=== PATIENT | female | born 1985 | race Hispanic/Latino ===

== ENCOUNTER 2023-01-18 11:23 | Inpatient (IN) | payer SELFPAY, OTHER ==
[~2023-01-18 11:23] MED LIST: Iopamidol-370 76% 500 ML 1 ML ONE
[2023-01-18] MEDS ORDERED: Fentanyl 100 MCG/2 ML VIAL ONE ×2 (11:32→12:39)
[2023-01-18] MEDS ORDERED: Boostrix 0.5 ML (Tdap) VIAL (>/=7 yrs of age) ONE (11:32)
[2023-01-18] MEDS ORDERED: CEFAZOLIN 2 GM VIAL ONE (11:32)
[2023-01-18 12:22] LABS: #Eosinphils 0.1 thou/uL (0.0-0.7); #Lymphocytes 2.1 thou/uL (1.20-3.40); #Monocytes 0.4 thou/uL (0.11-0.59); #Neutrophils 6.7 thou/uL (1.40-6.50); %Basophils 0.4 % (0.0-1.0); %Eosinophils 0.8 % (0.0-10.0); %Lymphocytes 22.7 % (21.0-51.0); %Monocytes 4.1 % (0.0-10.0); %Neutrophils 71.9 % (42.0-75.0); Hemoglobin 13.9 g/dL (12.0-16.0); Mean Corpuscular HGB CONC 34.4 g/dL (32.0-36.0); Mean Corpuscular Hemoglobin 29.7 pg (27.0-31.0); Mean Corpuscular Volume 86.4 fl (78.0-98.0); Mean Platelet Volume 8.4 fL (7.4-10.4); Platelet Count 233 10x3/uL (130-400); RBC Distribution Width 11.7 % (11.5-14.5); Red Blood Cell (RBC) Count 4.68 mill/uL (4.20-5.40); White Blood Cell (WBC) Count 9.3 10x3/uL (4.8-10.8)
[2023-01-18] MEDS ORDERED: Lidocaine 1% w/Epinephrine 1:100K 20 ML VIAL ONE ×2 (12:30→16:54)
[2023-01-18 12:36] LABS: BHCG - Serum Negative (NEGATIVE); Pregs Control Background? CLEAR/WHITE (CLR/WHITE); Pregs Control Bar Appear? YES (CONTROL BAR)
[2023-01-18 12:38] LABS: Prothrombin Time 13.9 sec (12.0-14.7)
[2023-01-18 12:39] LABS: PTT 32.4 sec (22.9-36.1)
[2023-01-18 12:44] LABS: ALT (SGPT) 24 U/L (8-55); AST (SGOT) 39 U/L (5-34); Albumin 3.9 g/dL (3.5-5.0); Alkaline Phosphatase 70 U/L (40-110); Anion Gap 11 mmol/L (10-20); BUN (Urea Nitrogen) 7 mg/dL (7.0-18.7); Bilirubin, Total 0.6 mg/dL (0.2-1.2); Calc. Creatinine Clearance 0 mL/min (70-130); Calcium 8.8 mg/dL (7.8-10.44); Carbon Dioxide 25 mmol/L (22-29); Chloride 103 mmol/L (98-107); Estimated GFR 115; Globulin 3.2 g/dL (2.4-3.5); Glucose 93 mg/dL (70-105); Potassium 3.1 mmol/L (3.5-5.1); Protein, Total 7.1 g/dL (6.0-8.3); Sodium 136 mmol/L (136-145)
[2023-01-18] MEDS ORDERED: Dextrose 5% in Water 1,000 ML IV PRN (13:07)
[2023-01-18] MEDS ORDERED: Ondansetron PF 4 MG/2 ML Vial IVP PRN (13:07)
[2023-01-18] MEDS ORDERED: hydrALAZINE 20 MG/ML VIAL SLOW IVP PRN (13:07)
[2023-01-18] MEDS ORDERED: Dextrose 50% Abboject 50 ML SYRINGE SLOW IVP PRN (13:07)
[2023-01-18] MEDS ORDERED: Acetaminophen/Codeine 30-300mg Tablet PO PRN (13:10)
[2023-01-18] MEDS ORDERED: Sodium Chloride 0.9% 1,000 ML IV SCH (13:15)
[2023-01-18 13:37] LABS: Magnesium 1.6 mg/dL (1.6-2.6); Phosphorus 2.5 mg/dL (2.3-4.7)
[2023-01-18] MEDS ORDERED: Ondansetron PF 4 MG/2 ML Vial ONE (14:29)
[2023-01-18] MEDS ORDERED: Morphine 4 MG/ML VIAL ONE (14:29)
[2023-01-18] MEDS ORDERED: Potassium Chloride 20 MEQ TAB ONE (14:29)
[2023-01-18] MEDS ORDERED: Acetaminophen 325 MG TAB ONE (14:48)
[2023-01-18] MEDS ORDERED: Acetaminophen/Codeine 30-300mg Tablet ONE (14:48)
[2023-01-18] MEDS ORDERED: CEFAZOLIN 2 GM in Sodium Chloride 0.9% 100 ML IVPB SCH (15:00)
[2023-01-18] MEDS: Acetaminophen/Codeine 30-300mg Tablet PO SCH ×2 (15:00→21:45)
[2023-01-18] MEDS ORDERED: Potassium Phosphate 30 MMOL in Sodium Chloride 0.9% 250 ML 250 ML IVPB SCH (15:45)
[2023-01-18] MEDS ORDERED: Magnesium 2 GM/50 ML(in water) 2 GM in Premix Bag 1 BAG IVPB SCH (15:45)
[2023-01-18] MEDS ORDERED: Magnesium 2 GM/50 ML BAG (IN WATER) ONE (16:52)
[2023-01-18] MEDS: Acetaminophen 325 MG TAB PO SCH (17:01)
[2023-01-18 18:30] LABS: SARS-CoV-2 NAA Rapid Test Not Detected (NotDetected)
[2023-01-18 20:03] VITALS: BMI 26.6
[2023-01-18] MEDS: Morphine 4 MG/ML VIAL SLOW IVP PRN (21:43)
[2023-01-18] MEDS: Famotidine/PF 20 mg/2ml Vial SLOW IVP SCH (21:44)
[2023-01-18] MEDS: Senokot S 8.6-50 MG TAB PO SCH (21:44)
[2023-01-18] MEDS: Gabapentin 300 MG CAP PO SCH (21:44)
[2023-01-19] MEDS: Acetaminophen 325 MG TAB PO SCH ×5 (00:21→23:22)
[2023-01-19] MEDS: Morphine 4 MG/ML VIAL SLOW IVP PRN ×4 (00:23→23:37)
[2023-01-19] MEDS: Acetaminophen/Codeine 30-300mg Tablet PO SCH ×4 (03:25→20:12)
[2023-01-19 06:27] LABS: #Lymphocytes 1.2 thou/uL (1.20-3.40); #Monocytes 0.7 thou/uL (0.11-0.59); #Neutrophils 4.7 thou/uL (1.40-6.50); %Basophils 0.2 % (0.0-1.0); %Eosinophils 0.6 % (0.0-10.0); %Lymphocytes 17.9 % (21.0-51.0); %Monocytes 10.9 % (0.0-10.0); %Neutrophils 70.4 % (42.0-75.0); Hemoglobin 12.7 g/dL (12.0-16.0); Mean Corpuscular HGB CONC 34.2 g/dL (32.0-36.0); Mean Corpuscular Volume 87.7 fl (78.0-98.0); Mean Platelet Volume 8.2 fL (7.4-10.4); Platelet Count 213 10x3/uL (130-400); RBC Distribution Width 11.8 % (11.5-14.5); Red Blood Cell (RBC) Count 4.24 mill/uL (4.20-5.40); White Blood Cell (WBC) Count 6.7 10x3/uL (4.8-10.8)
[2023-01-19 06:50] LABS: Anion Gap 10 mmol/L (10-20); BUN (Urea Nitrogen) 7 mg/dL (7.0-18.7); Calc. Creatinine Clearance 127 mL/min (70-130); Calcium 8.5 mg/dL (7.8-10.44); Carbon Dioxide 25 mmol/L (22-29); Chloride 105 mmol/L (98-107); Estimated GFR 115; Glucose 107 mg/dL (70-105); Potassium 3.8 mmol/L (3.5-5.1); Sodium 136 mmol/L (136-145)
[2023-01-19] MEDS: Famotidine/PF 20 mg/2ml Vial SLOW IVP SCH ×2 (10:03→20:14)
[2023-01-19] MEDS: Polyethylene Glycol 3350 17 GM Packet PO SCH (10:04)
[2023-01-19] MEDS: Senokot S 8.6-50 MG TAB PO SCH ×2 (10:04→20:13)
[2023-01-19] MEDS: Gabapentin 300 MG CAP PO SCH ×3 (10:04→20:14)
[2023-01-19] MEDS ORDERED: Sodium Chloride 0.65% Nasal 44 ML BOT EA NARE PRN (10:40)
[2023-01-19] MEDS ORDERED: fentaNYL PF 100 MCG/2 ML SYRINGE ONE (13:51)
[2023-01-19] MEDS ORDERED: Lidocaine 1% PF 5 ML VIAL ONE (14:17)
[2023-01-19] MEDS ORDERED: PROPOFOL 200 MG/20 ML VIAL ONE (14:17)
[2023-01-19] MEDS ORDERED: Dexamethasone 20 MG/5 ML VIAL ONE (14:17)
[2023-01-19] MEDS ORDERED: Ondansetron PF 4 MG/2 ML Vial ONE (14:17)
[2023-01-19] MEDS ORDERED: Sodium Chloride 0.9% 100 ML ONE (14:18)
[2023-01-19] MEDS ORDERED: CEFAZOLIN 2 GM VIAL ONE (14:18)
[2023-01-19] MEDS ORDERED: HYDROmorphone 2 MG/ML VIAL SLOW IVP PRN (15:41)
[2023-01-19] MEDS ORDERED: Promethazine HCl 25 MG/ML VIAL IM PRN (15:41)
[2023-01-19] MEDS ORDERED: Ondansetron HCl/PF 4 MG/2 ML Vial IVP PRN (15:41)
[2023-01-19] MEDS ORDERED: Fentanyl 100 MCG/2 ML VIAL ONE (15:43)
[2023-01-19] MEDS: CEFAZOLIN 2 GM in Sodium Chloride 0.9% 100 ML IVPB SCH (23:22)
[2023-01-19] MEDS: Cyclobenzaprine 10 MG TAB PO PRN (23:37)
[2023-01-20] MEDS: Acetaminophen/Codeine 30-300mg Tablet PO SCH ×4 (03:59→21:13)
[2023-01-20 04:47] LABS: #Basophils 0.1 thou/uL (0.0-0.2); #Lymphocytes 0.6 thou/uL (1.20-3.40); #Monocytes 0.4 thou/uL (0.11-0.59); %Basophils 0.8 % (0.0-1.0); %Lymphocytes 4.5 % (21.0-51.0); %Monocytes 3.4 % (0.0-10.0); %Neutrophils 91.2 % (42.0-75.0); Hemoglobin 12.8 g/dL (12.0-16.0); Mean Corpuscular HGB CONC 34.1 g/dL (32.0-36.0); Mean Corpuscular Hemoglobin 30.1 pg (27.0-31.0); Mean Corpuscular Volume 88.2 fl (78.0-98.0); Mean Platelet Volume 8.5 fL (7.4-10.4); Platelet Count 198 10x3/uL (130-400); RBC Distribution Width 11.6 % (11.5-14.5); Red Blood Cell (RBC) Count 4.26 mill/uL (4.20-5.40)
[2023-01-20 05:13] LABS: Anion Gap 12 mmol/L (10-20); BUN (Urea Nitrogen) 7 mg/dL (7.0-18.7); Calc. Creatinine Clearance 124 mL/min (70-130); Calcium 8.7 mg/dL (7.8-10.44); Carbon Dioxide 24 mmol/L (22-29); Chloride 107 mmol/L (98-107); Estimated GFR 111; Glucose 172 mg/dL (70-105); Magnesium 1.9 mg/dL (1.6-2.6); Phosphorus 2.3 mg/dL (2.3-4.7); Potassium 3.9 mmol/L (3.5-5.1); Sodium 139 mmol/L (136-145)
[2023-01-20] MEDS: CEFAZOLIN 2 GM in Sodium Chloride 0.9% 100 ML IVPB SCH (05:24)
[2023-01-20] MEDS: Acetaminophen 325 MG TAB PO SCH ×3 (05:24→18:13)
[2023-01-20] MEDS ORDERED: PHOS-NAK 1 PKT PACK PO SCH (08:00)
[2023-01-20] MEDS: Senokot S 8.6-50 MG TAB PO SCH ×2 (09:42→21:14)
[2023-01-20] MEDS: Polyethylene Glycol 3350 17 GM Packet PO SCH (09:42)
[2023-01-20] MEDS: Gabapentin 300 MG CAP PO SCH ×3 (09:42→21:13)
[2023-01-20] MEDS: Famotidine/PF 20 mg/2ml Vial SLOW IVP SCH ×2 (09:42→21:14)
[2023-01-21] MEDS: Acetaminophen 325 MG TAB PO SCH ×3 (00:05→12:14)
[2023-01-21] MEDS: Acetaminophen/Codeine 30-300mg Tablet PO SCH ×3 (04:10→17:12)
[2023-01-21] MEDS: Cyclobenzaprine 10 MG TAB PO PRN (05:12)
[2023-01-21 06:17] LABS: #Eosinphils 0.1 thou/uL (0.0-0.7); #Lymphocytes 1.9 thou/uL (1.20-3.40); #Monocytes 0.7 thou/uL (0.11-0.59); #Neutrophils 6.2 thou/uL (1.40-6.50); %Basophils 0.3 % (0.0-1.0); %Eosinophils 0.7 % (0.0-10.0); %Lymphocytes 21.9 % (21.0-51.0); %Monocytes 7.3 % (0.0-10.0); %Neutrophils 69.8 % (42.0-75.0); Mean Corpuscular HGB CONC 33.6 g/dL (32.0-36.0); Mean Corpuscular Hemoglobin 29.7 pg (27.0-31.0); Mean Corpuscular Volume 88.4 fl (78.0-98.0); Mean Platelet Volume 8.7 fL (7.4-10.4); Platelet Count 197 10x3/uL (130-400); RBC Distribution Width 11.7 % (11.5-14.5); Red Blood Cell (RBC) Count 4.05 mill/uL (4.20-5.40); White Blood Cell (WBC) Count 8.9 10x3/uL (4.8-10.8)
[2023-01-21 06:28] LABS: Anion Gap 10 mmol/L (10-20); BUN (Urea Nitrogen) 9 mg/dL (7.0-18.7); Calc. Creatinine Clearance 133 mL/min (70-130); Calcium 8.6 mg/dL (7.8-10.44); Carbon Dioxide 29 mmol/L (22-29); Chloride 104 mmol/L (98-107); Estimated GFR 116; Glucose 96 mg/dL (70-105); Magnesium 1.8 mg/dL (1.6-2.6); Phosphorus 2.5 mg/dL (2.3-4.7); Potassium 3.9 mmol/L (3.5-5.1); Sodium 139 mmol/L (136-145)
[2023-01-21] MEDS ORDERED: PHOS-NAK 1 PKT PACK PO SCH (07:30)
[2023-01-21] MEDS ORDERED: Magnesium 2 GM/50 ML(in water) 2 GM in Premix Bag 1 BAG IVPB SCH (07:30)
[2023-01-21] MEDS: Polyethylene Glycol 3350 17 GM Packet PO SCH (09:33)
[2023-01-21] MEDS: Senokot S 8.6-50 MG TAB PO SCH (09:33)
[2023-01-21] MEDS: Gabapentin 300 MG CAP PO SCH ×2 (09:36→17:12)
[2023-01-21] MEDS ORDERED: Bacitracin 1 PK TOP SCH (11:45)
[2023-01-21 16:50] VITALS: BP 114/83; TEMP 98.7
[2023-01-22] MEDS ORDERED: Bacitracin 1 PK TOP SCH (09:00)
== END 2023-01-21 18:15 | disposition home or self-care (01) | DRG 958 ==
LOC: ERS 11:23 → ERHOLD 13:28 → SURG A 18:32
PROVIDERS: ADMIT Surgery; ATTEND Surgery
PROC: 0QSJ04Z Reposition Right Fibula with Internal Fixation Device, Open Approach (ICD-10-PCS; principal; 2023-01-19)
PROC: 0QSG04Z Reposition Right Tibia with Internal Fixation Device, Open Approach (ICD-10-PCS; 2023-01-19)
DX: S82.841A Displaced bimalleolar fracture of right lower leg, initial encounter for closed fracture (principal); S06.5X9A Traumatic subdural hemorrhage with loss of consciousness of unspecified duration, initial encounter; S27.0XXA Traumatic pneumothorax, initial encounter; S22.43XA Multiple fractures of ribs, bilateral, initial encounter for closed fracture; S06.6X9A Traumatic subarachnoid hemorrhage with loss of consciousness of unspecified duration, initial encounter; S52.512A Displaced fracture of left radial styloid process, initial encounter for closed fracture; S02.2XXA Fracture of nasal bones, initial encounter for closed fracture; E87.6 Hypokalemia; Z20.822 Contact with and (suspected) exposure to COVID-19; R40.2412 Glasgow coma scale score 13-15, at arrival to emergency department; Z98.890 Other specified postprocedural states; V89.2XXA Person injured in unspecified motor-vehicle accident, traffic, initial encounter
CPT/HCPCS: 12011; 27818; 29125; 36415; 70450; 70486; 71045; 71260; 72125; 74177; 80048; 80053; 83735; 84100; 84703; 85025; 85610; 85730; 86850; 86900; 86901; 90471; 90715; 96374; 96375; 96376; C1713; G0390; J1100; J1650; J2270; J2405; J2704; J3010; J3475; J3490; J7050; Q9967; S0028; U0002